=== PATIENT | male | born 1940 | race Caucasian/White ===

== ENCOUNTER 2020-02-25 22:38 | Emergency (ER) | payer MEDICARE, MEDICAID ==
[~2020-02-25] VITALS: Ht 182.9 cm; Wt 100.0 kg
[2020-02-25] MEDS ORDERED: SODIUM CHLORIDE 0.9% 1,000 ML IV ONE (23:01)
[2020-02-25] MEDS ORDERED: ONDANSETRON HCL 4MG/2ML INJ IV STA (23:01)
[2020-02-25] MEDS ORDERED: MORPHINE SULFATE 4 MG/ML CPJ (NOT FOR IM USE) IV STA (23:01)
[2020-02-25] MEDS ORDERED: KETOROLAC 30MG/ML VIAL IV STA (23:01)
[2020-02-26 00:29] LABS: BASOPHILS % 0.3 % (0.0-2.0); CHLORIDE 102 mEq/L (98-107); EOSINOPHILS % 2.2 % (0.0-5.0); HEMOGLOBIN. 16.1 g/dL (14.0-18.0); LYMPHOCYTES % 10.2 % (20.0-50.0); MEAN CORPUSCULAR VOLUME 94.3 fL (80.0-94.0); MEAN PLATELET VOLUME 9.9 fl (7.4-10.4); MONOCYTES % 8.4 % (2.0-8.0); NEUTROPHILS % 78.9 % (40.0-76.0); PLATELET 205 x1000/uL (130-400); RED BLOOD CELL COUNT 4.88 mill/uL (4.7-6.1); RED CELL DISTRIBUTION WIDTH 13.4 % (11.6-14.6)
[2020-02-26 00:43] LABS: PROTHROMBIN TIME 10.4 sec (9.6-11.0)
[2020-02-26 02:00] VITALS: BP 147/77
== END 2020-02-26 05:23 | disposition home or self-care (01) ==
LOC: ER 22:38
DX: K80.50 Calculus of bile duct without cholangitis or cholecystitis without obstruction (principal); K43.9 Ventral hernia without obstruction or gangrene
CPT/HCPCS: 36415; 74176; 76705; 80053; 83690; 84484; 85025; 85610; 93005; 96374; 96375; 99285; J1885; J2270; J2405; J7030